=== PATIENT | female | born 1960 | race American Indian/Alaskan Native ===

== ENCOUNTER 2017-07-29 08:36 | Emergency (ER) | payer MEDICARE ==
--- NOTE | 2017-07-29 09:23 | XRay Report ---
ROUTINE CHEST, TWO VIEWS: SOB. PA and lateral views demonstrate the heart and mediastinal contour to be of normal size and shape. The lungs are clear and fully expanded and the soft tissues and bony structures are normal. IMPRESSION: Normal study.
[2017-07-29 09:46] LABS: Basophils % (Auto) 0.5 % (0.0-1.8); Eosinophils % (Auto) 0.2 % (0.0-4.3); Hematocrit 39.4 % (30.3-42.9); Hemoglobin 13.5 gm/dl (10.1-14.3); Lymphocytes # (Auto) 1.5 K/mm3 (1.2-5.4); Lymphocytes % (Auto) 36.7 % (13.4-35.0); Mean Corpuscular HGB Conc 34 % (30-34); Mean Corpuscular Hemoglobin 30 pg (28-32); Mean Corpuscular Volume 86 fl (79-97); Monocytes # (Auto) 0.4 K/mm3 (0.0-0.8); Monocytes % (Auto) 9.7 % (0.0-7.3); Platelet Count 244 K/mm3 (140-440); Red Blood Count 4.56 M/mm3 (3.65-5.03); Red Cell Distribution Width 13.6 % (13.2-15.2)
[2017-07-29 09:59] LABS: BUN/Creatinine Ratio 17; Blood Urea Nitrogen 12 mg/dL (7-17); Calcium 9.6 mg/dL (8.4-10.2); Hemolysis Index 10
[2017-07-29] MEDS ORDERED: NORCO 5/325 PO ONE (10:19)
[2017-07-29] MEDS ORDERED: ZOFRAN ODT PO ONE (10:19)
[2017-07-29] MEDS ORDERED: TORADOL IM ONE (10:28)
--- NOTE | 2017-07-29 10:32 | Emergency Department Report ---
Blank Doc - Documentation Documentation: Patient is a 57 or V female who is presenting with left-sided neck pain that is extending up to the head. Patient states that when she turns her head to the left she has increased pain. Patient states pain is 6 out of 10 with no movement and 9 out of 10 with movement. Patient states that she approximately a week and a half ago had a otitis media on the left. Patient states that now is no longer her ear this hurting it's her neck. Patient denies any fevers chills nausea vomiting diarrhea. Patient states that she has no motor deficits at this time.
--- NOTE | 2017-07-29 11:42 | Cat Scan Report ---
FINAL REPORT EXAM: CT HEAD/BRAIN WO CON HISTORY: headache COMPARISON: None. TECHNIQUE: Multiple contiguous axial images were obtained from the skull base to the vertex without administration of IV contrast. FINDINGS: There is no parenchymal hemorrhage or extra-axial fluid collection. There is no mass or mass effect. There is no acute territorial infarct. There is an old lacunar infarct of the right basal ganglia with some adjacent low attenuation in the subcortical white matter. The ventricles are midline. The subarachnoid spaces and basilar cisterns are clear. The bilateral orbits are intact. The paranasal sinuses and mastoid air cells are clear. There is no skull fracture. IMPRESSION: No acute intracranial abnormality. Old lacunar infarct of the right basal ganglia.
--- NOTE | 2017-07-29 11:59 | Cat Scan Report ---
FINAL REPORT EXAM: CT CERVICAL SPINE WO CON HISTORY: left sided neck pain COMPARISON: None. TECHNIQUE: Multiple contiguous axial images were obtained through the cervical spine without administration of IV contrast. Reformatted sagittal and coronal images were available for review. FINDINGS: There is no acute fracture or dislocation. The vertebral body heights are maintained. There is diffuse intervertebral disc space narrowing. C1-C2: Hypertrophic changes. C2-C3: Intervertebral disc space narrowing with uncovertebral osteophyte formation. No central or foraminal stenosis. C3-C4: Intervertebral disc space narrowing with anterior and uncovertebral osteophyte formation. No central or foraminal stenosis. C4-C5: Intervertebral disc space narrowing with anterior and uncovertebral osteophyte formation. No central stenosis. Mild left foraminal stenosis. C5-C6: Intervertebral disc space narrowing with anterior and uncovertebral osteophyte formation. No central stenosis. Severe left foraminal stenosis. Mild right foraminal stenosis. C6-C7: Intervertebral disc space narrowing with anterior and uncovertebral osteophyte formation. No central stenosis. Mild bilateral foraminal stenosis. C7-T1: Intervertebral disc space narrowing. No central or foraminal stenosis. The paravertebral soft tissues are normal. The airway is patent. IMPRESSION: Multilevel degenerative disc disease, most prominent at C5-C6, with severe left foraminal stenosis and mild right foraminal stenosis.
--- NOTE | 2017-07-29 13:29 | Emergency Department Report ---
ED Headache HPI - General Chief Complaint: Headache Stated Complaint: HEADACHE Time Seen by Provider: 07/29/17 10:17 Source: patient - History of Present Illness Initial Comments: Patient is a 57 oyo female who is presenting with left-sided neck pain that is extending up to the head. Patient states that when she turns her head to the left she has increased pain. Patient states pain is 6 out of 10 with no movement and 9 out of 10 with movement. Patient states that she approximately a week and a half ago had a otitis media on the left. Patient states that now is no longer her ear this hurting it's her neck. Patient denies any fevers chills nausea vomiting diarrhea. Patient states that she has no motor deficits at this time. Patient has a history of stroke with left-sided weakness. Her left upper extremities be continued in her left lower extremity and she uses a cane. Patient blood pressure is 171/89 and she has a history of high blood pressure and she says she takes lisinopril pressure ran out. She said that she recently had angioedema which they gave her steroids and she was on lisinopril at that time Timing/Duration: 1 week, increasing, episodic, waxing and waning Quality: severe (9/10), pressure, throbbing Head Injury Location: frontal, temporal, occipital, parietal, other (left side of head) Recent Head Trauma: occasional headaches, other (history of stroke) Modifying Factors: improves with: rest Associated Symptoms: nausea/vomiting, other (left shoulder and left neck pain ) . denies: confusion, fatigue, facial pain, fever/chills, flushing, loss of consciousness, nasal congestion, nasal drainage, numbness in legs/feet, rash, seizures, sinus infection, stiff neck, vision changes, weakness Allergies/Adverse Reactions: Allergies Sulfa (Sulfonamide Antibiotics) Allergy (Unverified 10/17/13 11:15) Rash lisinopril Adverse Reaction (Verified 07/29/17 13:28) Angioedema Home Medications: Ambulatory Orders Aspirin 81 mg PO DAILY 07/29/17 Ondansetron [Zofran Odt] 4 mg PO Q8H PRN #12 tab.rapdis 07/29/17 traMADol [Ultram] 50 mg PO Q6HR PRN #12 tablet 07/29/17 ED Review of Systems ROS: Stated complaint: HEADACHE Other details as noted in HPI Comment: All other systems reviewed and negative Constitutional: denies: chills, fever, weakness Eyes: denies: eye pain, eye discharge, vision change ENT: denies: ear pain, throat pain, dental pain, hearing loss, congestion Respiratory: denies: cough, orthopnea, shortness of breath, SOB with exertion, SOB at rest, stridor, wheezing Cardiovascular: denies: chest pain, palpitations, dyspnea on exertion, edema, syncope, paroxysmal nocturnal dyspnea Gastrointestinal: denies: abdominal pain, nausea, vomiting, diarrhea Genitourinary: denies: urgency, dysuria, hematuria Musculoskeletal: arthralgia. denies: back pain, joint swelling Skin: denies: rash, lesions Neurological: headache, abnormal gait (chronic), other (lightheadedness). denies: weakness, numbness, paresthesias, vertigo ED Past Medical Hx - Past Medical History Previous Medical History?: Yes Hx Hypertension: Yes (patient states that she hasn't taken her blood pressure medication since ) Hx CVA: Yes (2010) Additional medical history: Angioedema - Surgical History Past Surgical History?: Yes Additional Surgical History: 3 cesarian section, hernia removed, hysterectomy - Family History Family history: CAD/CA, diabetes, hypertension - Social History Smoking Status: Never Smoker Substance Use Type: Alcohol Other Social History: She is and lives with her family - Medications Home Medications: Home Medications Medication Instructions Recorded Confirmed Last Taken Type Aspirin 81 mg PO DAILY 07/29/17 07/29/17 07/29/17 13:34 History Ondansetron [Zofran Odt] 4 mg PO Q8H PRN #12 tab.rapdis 07/29/17 Unknown Rx traMADol [Ultram] 50 mg PO Q6HR PRN #12 tablet 07/29/17 Unknown Rx ED Physical Exam - General Limitations: Physical Limitation (patient with history of stroke with left- sided weakness. She ambulates with a cane) General appearance: alert, in no apparent distress - Head Head exam: Present: atraumatic, normocephalic, normal inspection, other (normal exam) - Eye Eye exam: Present: normal appearance, PERRL, EOMI. Absent: nystagmus, periorbital swelling, periorbital tenderness Pupils: Present: normal accommodation - ENT ENT exam: Present: normal exam, normal orophraynx, mucous membranes moist, TM's normal bilaterally, normal external ear exam - Neck Neck exam: Present: normal inspection, full ROM, other (no C-spine tenderness). Absent: tenderness, meningismus, lymphadenopathy - Expanded Neck Exam Expanded Neck exam: Absent: tenderness, midline deformity, anterior neck swelling, carotid bruit, tracheal deviation - Respiratory Respiratory exam: Present: normal lung sounds bilaterally. Absent: respiratory distress, chest wall tenderness, accessory muscle use - Cardiovascular Cardiovascular Exam: Present: regular rate, normal rhythm. Absent: systolic murmur, diastolic murmur - GI/Abdominal GI/Abdominal exam: Present: soft, normal bowel sounds. Absent: distended, tenderness, guarding, rebound, rigid, organomegaly, mass, bruit, pulsatile mass , hernia - Extremities Exam Extremities exam: Present: normal inspection, full ROM, normal capillary refill , other (no clubbing, cyanosis or edema. Pulses + extremities and no neurovascular compromise.). Absent: tenderness, pedal edema, joint swelling, calf tenderness - Back Exam Back exam: Present: normal inspection, full ROM. Absent: tenderness, CVA tenderness (R), CVA tenderness (L), muscle spasm, paraspinal tenderness, vertebral tenderness, rash noted - Neurological Exam Neurological exam: Present: alert, oriented X3, abnormal gait (which is chronic condition related to the cane secondary to stroke.), motor sensory deficit ( left side secondary to previous stroke. Left upper extremity 3/5 and lower extremity 4/5). Absent: reflexes normal - Expanded Neurological Exam Expanded Neurological exam: Absent: innattentive, memory loss-remote event, memory loss- recent event, ataxia, receptive aphasia, expressive aphasia, total aphasia, tremor, protecting the airway Patient oriented to: Present: person, place, time Speech: Present: fluid speech Cranial nerves: EOM's Intact: Normal, Gag Reflex: Normal, Tongue Deviation: Normal, Nystagmus: Normal, Facial Sensation: Normal, Facial Palsy without Forehead Movement: Abnormal Left, Normal (patient with left facial droop which is chronic) Cerebellar function: Finger to Nose: Normal, Romberg: Normal Upper motor neuron: Pronator Drift: Abnormal Left (chronic from previous stroke) , Sensory Extinction: Normal Sensory exam: Upper Extremity Light Touch: Normal, Upper Extremity Temperature: Normal, UE 2 Point Discrimination: Normal, Lower Extremity Light Touch: Normal, Lower Extremity Temperature: Normal, LE 2 Point Discrimination: Normal Motor strength exam: RUE: 5, LUE: 3, RLE: 5, LLE: 4 DTR: bicep (R): 2+, bicep (L): 1+, knee (R): 2+, knee (L): 1+, ankle (R): 1+, ankle (L): 2+ Best Eye Response (Lashanda): (4) open spontaneously Best Motor Response (Lashanda): (6) obeys commands Best Verbal Response (Lashanda): (5) oriented [place] Total: 15 - Psychiatric Psychiatric exam: Present: normal affect, normal mood - Skin Skin exam: Present: warm, dry, intact, normal color. Absent: rash ED Course Vital Signs 07/29/17 07/29/17 08:40 13:42 Temperature 98.7 F 98.3 F Pulse Rate 76 64 Respiratory 20 Rate Blood Pressure 171/89 Blood Pressure 143/86 [Right] O2 Sat by Pulse 98 98 Oximetry - Reevaluation(s) Reevaluation #1: 07/29/17 13:39 Patient received hydrocodone 5/325 mg one tablet by mouth, Toradol 60 mg IM and Zofran 4 mg ODT which relieved her nausea and her head and neck pain. She she is feeling much better. ED Medical Decision Making - Lab Data Result diagrams: 07/29/17 09:33 07/29/17 09:33 Lab Results 07/29/17 07/29/17 Range/Units 09:33 09:33 WBC 4.0 L (4.5-11.0) K/mm3 RBC 4.56 (3.65-5.03) M/mm3 Hgb 13.5 (10.1-14.3) gm/dl Hct 39.4 (30.3-42.9) % MCV 86 (79-97) fl MCH 30 (28-32) pg MCHC 34 (30-34) % RDW 13.6 (13.2-15.2) % Plt Count 244 (140-440) K/mm3 Lymph % (Auto) 36.7 H (13.4-35.0) % [place] % (Auto) 9.7 H (0.0-7.3) % Eos % (Auto) 0.2 (0.0-4.3) % Baso % (Auto) 0.5 (0.0-1.8) % Lymph # 1.5 (1.2-5.4) K/mm3 [place] # 0.4 (0.0-0.8) K/mm3 Eos # 0.0 (0.0-0.4) K/mm3 Baso # 0.0 (0.0-0.1) K/mm3 Seg Neutrophils % 52.9 (40.0-70.0) % Seg Neutrophils # 2.1 (1.8-7.7) K/mm3 Sodium 141 (137-145) mmol/L Potassium 3.7 (3.6-5.0) mmol/L Chloride 103.5 (98-107) mmol/L Carbon Dioxide 25 (22-30) mmol/L Anion Gap 16 mmol/L BUN 12 (7-17) mg/dL Creatinine 0.7 (0.7-1.2) mg/dL Estimated GFR > 60 ml/min BUN/Creatinine Ratio 17 % Glucose 103 H (65-100) mg/dL Calcium 9.6 (8.4-10.2) mg/dL - EKG Data -: EKG Interpreted by Me (Dr. Goss) EKG shows normal: sinus rhythm Rate: bradycardia (59 bpm which is normal for patient) - EKG Data Interpretation: no acute changes - Radiology Data Radiology results: report reviewed Patient: MANISH FLETCHER MR#: [id number] : 1960 Acct:[id number] Age/Sex: 57 / F ADM Date: 07/29/17 Loc: ED Attending Dr: Ordering Physician: MYRIAM GOSS MD Date of Service: 07/29/17 Procedure(s): CT cervical spine wo con Accession Number(s): [id number] cc: MYRIAM GOSS MD FINAL REPORT EXAM: CT CERVICAL SPINE WO CON HISTORY: left sided neck pain COMPARISON: None. TECHNIQUE: Multiple contiguous axial images were obtained through the cervical spine without administration of IV contrast. Reformatted sagittal and coronal images were available for review. FINDINGS: There is no acute fracture or dislocation. The vertebral body heights are maintained. There is diffuse intervertebral disc space narrowing. C1-C2: Hypertrophic changes. C2-C3: Intervertebral disc space narrowing with uncovertebral osteophyte formation. No central or foraminal stenosis. C3-C4: Intervertebral disc space narrowing with anterior and uncovertebral osteophyte formation. No central or foraminal stenosis. C4-C5: Intervertebral disc space narrowing with anterior and uncovertebral osteophyte formation. No central stenosis. Mild left foraminal stenosis. C5-C6: Intervertebral disc space narrowing with anterior and uncovertebral osteophyte formation. No central stenosis. Severe left foraminal stenosis. Mild right foraminal stenosis. C6-C7: Intervertebral disc space narrowing with anterior and uncovertebral osteophyte formation. No central stenosis. Mild bilateral foraminal stenosis. C7-T1: Intervertebral disc space narrowing. No central or foraminal stenosis. The paravertebral soft tissues are normal. The airway is patent. IMPRESSION: Multilevel degenerative disc disease, most prominent at C5-C6, with severe left foraminal stenosis and mild right foraminal stenosis. Transcribed By: HEATH Dictated By: BRITTON CANTRELL MD Electronically Authenticated By: BRITTON CANTRELL MD Signed Date/Time: 07/29/171152 DD/ 52 TD/TT: 07/29/171152 Patient: MANISH FLETCHER MR#: [id number] : 1960 Acct:[id number] Age/Sex: 57 / F ADM Date: 07/29/17 Loc: ED Attending Dr: Ordering Physician: MYRIAM GOSS MD Date of Service: 07/29/17 Procedure(s): CT head/brain wo con Accession Number(s): [id number] cc: MYRIAM GOSS MD FINAL REPORT EXAM: CT HEAD/BRAIN WO CON HISTORY: headache COMPARISON: None. TECHNIQUE: Multiple contiguous axial images were obtained from the skull base to the vertex without administration of IV contrast. FINDINGS: There is no parenchymal hemorrhage or extra-axial fluid collection. There is no mass or mass effect. There is no acute territorial infarct. There is an old lacunar infarct of the right basal ganglia with some adjacent low attenuation in the subcortical white matter. The ventricles are midline. The subarachnoid spaces and basilar cisterns are clear. The bilateral orbits are intact. The paranasal sinuses and mastoid air cells are clear. There is no skull fracture. IMPRESSION: No acute intracranial abnormality. Old lacunar infarct of the right basal ganglia. Transcribed By: HEATH Dictated By: BRITTON CANTRELL MD Electronically Authenticated By: BRITTON CANTRELL MD Signed Date/Time: 07/29/17 1137 Patient: MANISH FLETCHER MR#: [id number] : 1960 Acct:[id number] Age/Sex: 57 / F ADM Date: 07/29/17 Loc: ED Attending Dr: Ordering Physician: SHEKHAR AKINS MD Date of Service: 07/29/17 Procedure(s): XR chest routine 2V Accession Number(s): [id number] cc: ED MD TASHI Fluoro Time In Minutes: ROUTINE CHEST, TWO VIEWS: SOB. PA and lateral views demonstrate the heart and mediastinal contour to be of normal size and shape. The lungs are clear and fully expanded and the soft tissues and bony structures are normal. IMPRESSION: Normal study. Transcribed By: JOSELYN Dictated By: RUBIN NEGRO MD Electronically Authenticated By: RUBIN NEGRO MD Signed Date/Time: 07/29/17910 DD/ 0 TD/TT: 07/29/17910 - Medical Decision Making ED course: Patient complaining of head and neck pain that radiated in to her shoulder. Pain started and neck and radiating up her head on the left side and also to her left shoulder. Chest x-ray revealed no acute findings, CT scan of the head reveals no acute findings. Patient has old lacunar infarct of the right basal ganglia. CT scan of the C-spine without contrast shows multilevel degenerative disc disease with spinal stenosis to right and left forearm in all and stenosis the left is severe while to right is mild. Results were explained to patient in details that she was understanding. She says she did not know that she has arthritis in her spine. She is baseline neurologically. She was encouraged to follow-up with her primary care physician to manage her chronic high blood pressure.I offered to place her on blood pressure medication but she wants to wait to see her primary care side told her to keep a log of her blood pressure and call today to schedule an appointment to see him on Tuesday. She said she had angioedema and has not taken lisinopril since March/2017 and is not in any blood pressure medication. Patient was also referred to neurology and orthopedic doctor to call and schedule an appointment for follow-up visit She was given Toradol 60 mg IM, Walker 5/325 one tablet by mouth emergency room for pain and Zofran 4 mg ODT which relieved her pain and her nausea. Patient states she is feeling a lot better. Headache has subsided, neck pain is constant with a 10 and she says she is not having any shoulder pain and her nausea has resolved. She was discharged home with her family with prescription for Ultram and Zofran.. Patient: MANISH FLETCHER MR#: [id number] : 1960 Acct:[id number] Age/Sex: 57 / F ADM Date: 07/29/17 Loc: ED Attending Dr: Ordering Physician: MYRIAM GOSS MD Date of Service: 07/29/17 Procedure(s): CT cervical spine wo con Accession Number(s): [id number] cc: MYRIAM GOSS MD FINAL REPORT EXAM: CT CERVICAL SPINE WO CON HISTORY: left sided neck pain COMPARISON: None. TECHNIQUE: Multiple contiguous axial images were obtained through the cervical spine without administration of IV contrast. Reformatted sagittal and coronal images were available for review. FINDINGS: There is no acute fracture or dislocation. The vertebral body heights are maintained. There is diffuse intervertebral disc space narrowing. C1-C2: Hypertrophic changes. C2-C3: Intervertebral disc space narrowing with uncovertebral osteophyte formation. No central or foraminal stenosis. C3-C4: Intervertebral disc space narrowing with anterior and uncovertebral osteophyte formation. No central or foraminal stenosis. C4-C5: Intervertebral disc space narrowing with anterior and uncovertebral osteophyte formation. No central stenosis. Mild left foraminal stenosis. C5-C6: Intervertebral disc space narrowing with anterior and uncovertebral osteophyte formation. No central stenosis. Severe left foraminal stenosis. Mild right foraminal stenosis. C6-C7: Intervertebral disc space narrowing with anterior and uncovertebral osteophyte formation. No central stenosis. Mild bilateral foraminal stenosis. C7-T1: Intervertebral disc space narrowing. No central or foraminal stenosis. The paravertebral soft tissues are normal. The airway is patent. IMPRESSION: Multilevel degenerative disc disease, most prominent at C5-C6, with severe left foraminal stenosis and mild right foraminal stenosis. Transcribed By: HEATH Dictated By: BRITTON CANTRELL MD Electronically Authenticated By: BRITTON CANTRELL MD Signed Date/Time: 07/29/17 1153 DD/ 1153 TD/TT: 07/29/17 1153 Patient: MANISH FLETCHER MR#: [id number] : 1960 Acct:[id number] Age/Sex: 57 / F ADM Date: 07/29/17 Loc: ED Attending Dr: Ordering Physician: MYRIAM GOSS MD Date of Service: 07/29/17 Procedure(s): CT head/brain wo con Accession Number(s): [id number] cc: MYRIAM GOSS MD FINAL REPORT EXAM: CT HEAD/BRAIN WO CON HISTORY: headache COMPARISON: None. TECHNIQUE: Multiple contiguous axial images were obtained from the skull base to the vertex without administration of IV contrast. FINDINGS: There is no parenchymal hemorrhage or extra-axial fluid collection. There is no mass or mass effect. There is no acute territorial infarct. There is an old lacunar infarct of the right basal ganglia with some adjacent low attenuation in the subcortical white matter. The ventricles are midline. The subarachnoid spaces and basilar cisterns are clear. The bilateral orbits are intact. The paranasal sinuses and mastoid air cells are clear. There is no skull fracture. IMPRESSION: No acute intracranial abnormality. Old lacunar infarct of the right basal ganglia. Transcribed By: HEATH Dictated By: BRITTON CANTRELL MD Electronically Authenticated By: BRITTON CANTRELL MD Signed Date/Time: 07/29/17 1137 Patient: MANISH FLETCHER MR#: [id number] : 1960 Acct:[id number] Age/Sex: 57 / F ADM Date: 07/29/17 Loc: ED Attending Dr: Patient: MANISH FLETCHER MR#: [id number] : 1960 Acct:[id number] Age/Sex: 57 / F ADM Date: 07/29/17 Loc: ED Attending Dr: Ordering Physician: SHEKHAR AKINS MD Date of Service: 07/29/17 Procedure(s): XR chest routine 2V Accession Number(s): [id number] cc: SHEKHAR AKINS MD Fluoro Time In Minutes: ROUTINE CHEST, TWO VIEWS: SOB. PA and lateral views demonstrate the heart and mediastinal contour to be of normal size and shape. The lungs are clear and fully expanded and the soft tissues and bony structures are normal. IMPRESSION: Normal study. Transcribed By: JOSELYN Dictated By: RUBIN NEGRO MD Electronically Authenticated By: RUBIN NEGRO MD Signed Date/Time: 07/29/17910 DD/ 0 TD/TT: 07/29/17910 - Differential Diagnosis CVA, acute headache unspecified, cervical radiculopathy, degenerative disc Critical care attestation.: If time is entered above; I have spent that time in minutes in the direct care of this critically ill patient, excluding procedure time. ED Disposition Clinical Impression: Cervical radiculopathy, Degenerative cervical disc, Elevated blood pressure reading with diagnosis of hypertension, Neck pain, acute, Arthralgia of left shoulder region, Foraminal stenosis of cervical region Acute nonintractable headache Qualifiers: Headache type: unspecified Qualified Code(s): R51 - Headache Disposition: TO HOME OR SELFCARE Is pt being admited?: No Does the pt Need Aspirin: No Condition: Stable Instructions: Acute Headache (ED), Acute Nausea and Vomiting (ED), Cervical Spinal Stenosis (ED), Cervical Radiculopathy (ED), Hypertension (ED), Arthralgia (ED), Degenerative Disc Disease (ED) Additional Instructions: Please follow-up with your primary care physician. Call today to schedule an appointment to follow-up on Tuesday Your blood pressure is elevated and you not taken any blood pressure medication so I'll start you on Norvasc at 5 mg please take daily and let your primary care physician know that you're started on this medicine Take ultram for pain but please not drive or operate heavy machinery while taking this medicine Keep log of Blood pressure and take to primary care physician with you Take Zofran for nausea Prescriptions: Ondansetron [Zofran Odt] 4 mg PO Q8H PRN #12 tab.rapdis PRN Reason: Nausea And Vomiting traMADol [Ultram] 50 mg PO Q6HR PRN #12 tablet PRN Reason: Pain Referrals: NICOLE GARCIA MD [Primary Care Provider] - 08/01/17 RUBIN INGRAM MD [Staff Physician] - 3-5 Days JOEL CABEZAS MD [Staff Physician] - 08/01/17 Forms: Accompanied Note
[2017-07-29 14:31] VITALS: BP 142/80
== END 2017-07-29 14:31 | disposition home or self-care (01) ==
LOC: ED 08:36
DX: M54.12 Radiculopathy, cervical region (principal); M50.30 Other cervical disc degeneration, unspecified cervical region; I10 Essential (primary) hypertension; M25.512 Pain in left shoulder; M48.02 Spinal stenosis, cervical region
CPT/HCPCS: 36415; 70450; 71046; 72125; 80048; 85025; 96372; 99284; J1885; 93005; 93010